=== PATIENT | female | born 1990 | race Caucasian/White ===

== ENCOUNTER 2017-02-05 18:26 | Emergency (ER) | payer BC, OTHER ==
[2017-02-05] MEDS ORDERED: Sodium Chloride 0.9% 1,000 ML IV ONE (18:55)
[2017-02-05 19:51] LABS: CHLORIDE,CL 106 mmol/L (98-110); SODIUM,NA 140 mmol/L (136-146)
--- NOTE | 2017-02-05 20:43 | EDM.PDOC ---
ED HPI GENERAL MEDICAL PROBLEM - General Chief Complaint: Abdominal Pain Stated Complaint: PT HAS STOMACH PAINS Time Seen by Provider: 02/05/17 18:55 Source of Information: Reports: Patient History Limitations: Reports: No Limitations - History of Present Illness INITIAL COMMENTS - FREE TEXT/NARRATIVE: History of present illness: 26 year-old female comes in complaining of abdominal pain. Patient indicates that the pain started this morning, denies any nausea or vomiting. Patient indicates that his gotten worse throughout the day and has a cramping type quality and she became concerned and wanted it evaluated. Review of systems: As per history of present illness and below otherwise all systems reviewed and negative. Past medical history: As per history of present illness and as reviewed below otherwise noncontributory. Surgical history: As per history of present illness and as reviewed below otherwise noncontributory. Social history: No reported history of drug or alcohol abuse. Family history: As per history of present illness and as reviewed below otherwise noncontributory. Physical exam: HEENT: Atraumatic, normocephalic, pupils reactive, negative for conjunctival pallor or scleral icterus, mucous membranes moist, throat clear, neck supple, nontender, trachea midline. Lungs: Clear to auscultation, breath sounds equal bilaterally, chest nontender. Heart: S1S2, regular, negative for clicks, rubs, or JVD. Abdomen: Soft, diffuse nonspecific tenderness, of a radiating quality. On palpation pain seems to wax and wane. Negative for masses or hepatosplenomegaly. Negative for costovertebral tenderness. Pelvis: Stable nontender. Genitourinary: Deferred. Rectal: Deferred. Extremities: Atraumatic, negative for cords or calf pain. Neurovascular unremarkable. Neuro: Awake, alert, oriented. Cranial nerves II through XII unremarkable. Cerebellum unremarkable. Motor and sensory unremarkable throughout. Exam nonfocal. Patient accused that she has a sporadic bowel pattern going only every 2-3 days and that she does not have diarrhea but it is not hard either. Patient is unable to quantify what a normal bowel movement is for her area Diagnostics: [CBC, CMP, blood plate of abdomen] Therapeutics: [] Impression: [Colonic constipation, increased bowel gas pattern] Plan: [Liquid diet 24-48 hours increase ambulation slowly increase diet as tolerated] Definitive disposition and diagnosis as appropriate pending reevaluation and review of above. Upper Abdominal Pain Pain Score (Numeric/FACES): 6 - Related Data Allergies Allergy/AdvReac Type Severity Reaction Status Date / Time No Known Allergies Allergy Verified 02/05/17 18:42 Home Meds: Home Meds . [No Known Home Meds] 02/05/17 [History] Past Medical History Gastrointestinal History: Reports: None - Past Surgical History GI Surgical History: Reports: Appendectomy Social & Family History - Family History Family Medical History: Noncontributory - Tobacco Use Smoking Status *Q: Never Smoker - Caffeine Use Caffeine Use: Reports: None - Recreational Drug Use Recreational Drug Use: No ED ROS GENERAL - Review of Systems Review Of Systems: See Below (See history of present illness) ED EXAM, GI/ABD - Physical Exam Exam: See Below (See history of present illness) Course - Vital Signs Last Recorded V/S: Last Vital Signs Temp 36.5 C 02/05/17 18:42 Pulse 80 02/05/17 18:42 Resp 16 02/05/17 18:42 BP 125/60 02/05/17 18:42 Pulse Ox 99 02/05/17 18:42 - Orders/Labs/Meds Orders: Active Orders 24 hr Category Date Time Status Flat upright w/ PA Chest [Abdomen 2V AP Upright Decub] Exams 02/05/17 19:38 Taken [CR] Stat Labs: Laboratory Tests 02/05/17 02/05/17 02/05/17 Range/Units 18:40 18:40 19:06 WBC 8.23 (4.0-11.0) K/uL RBC 4.25 L (4.30-5.90) M/uL Hgb 12.7 (12.0-16.0) g/dL Hct 38.5 (36.0-46.0) % MCV 90.6 (80.0-98.0) fL MCH 29.9 (27.0-32.0) pg MCHC 33.0 (31.0-37.0) g/dL RDW Std Deviation 42.7 (28.0-62.0) fl RDW Coeff of Mio 13 (11.0-15.0) % Plt Count 154 (150-400) K/uL MPV 12.00 (7.40-12.00) fL Neut % (Auto) 65.0 (48.0-80.0) % Lymph % (Auto) 28.2 (16.0-40.0) % [place] % (Auto) 5.5 (0.0-15.0) % Eos % (Auto) 0.9 (0.0-7.0) % Baso % (Auto) 0.4 (0.0-1.5) % Neut # (Auto) 5.4 (1.4-5.7) K/uL Lymph # (Auto) 2.3 (0.6-2.4) K/uL [place] # (Auto) 0.5 (0.0-0.8) K/uL Eos # (Auto) 0.1 (0.0-0.7) K/uL Baso # (Auto) 0.0 (0.0-0.1) K/uL Nucleated RBC % 0.0 /100WBC Nucleated RBCs # 0 K/uL Sodium (136-146) mmol/L Potassium (3.5-5.1) mmol/L Chloride (98-110) mmol/L Carbon Dioxide (21-31) mmol/L BUN (6.0-23.0) mg/dL Creatinine (0.6-1.5) mg/dL Est Cr Clr Drug Dosing mL/min Estimated GFR (MDRD) ml/min Glucose (60-110) mg/dL Calcium (8.8-10.8) mg/dL Total Bilirubin (0.1-1.5) mg/dL AST (5-40) IU/L ALT (8-54) IU/L Alkaline Phosphatase (40-150) Total Protein (6.0-8.0) g/dL Albumin (3.5-5.0) g/dL Globulin (2.0-3.5) g/dL Albumin/Globulin Ratio (1.3-2.8) Urine Color YELLOW Urine Appearance CLEAR Urine pH 6.0 (5.0-8.0) Ur Specific Happy 1.020 (1.001-1.035) Urine Protein NEGATIVE (NEGATIVE) mg/dL Urine Glucose (UA) NEGATIVE (NEGATIVE) mg/dL Urine Ketones 15 H (NEGATIVE) mg/dL Urine Occult Blood TRACE-INTACT (NEGATIVE) Urine Nitrite NEGATIVE (NEGATIVE) Urine Bilirubin NEGATIVE (NEGATIVE) Urine Urobilinogen 1.0 (<2.0) EU/dL Ur Leukocyte Esterase NEGATIVE (NEGATIVE) Urine RBC 0-2 (0-2/HPF) Urine WBC 0-4 (0-5/HPF) Ur Epithelial Cells MODERATE (NONE-FEW) Urine Bacteria FEW (NEGATIVE) Urine HCG, Qual NEGATIVE (NEGATIVE) 02/05/17 Range/Units 19:06 WBC (4.0-11.0) K/uL RBC (4.30-5.90) M/uL Hgb (12.0-16.0) g/dL Hct (36.0-46.0) % MCV (80.0-98.0) fL MCH (27.0-32.0) pg MCHC (31.0-37.0) g/dL RDW Std Deviation (28.0-62.0) fl RDW Coeff of Mio (11.0-15.0) % Plt Count (150-400) K/uL MPV (7.40-12.00) fL Neut % (Auto) (48.0-80.0) % Lymph % (Auto) (16.0-40.0) % [place] % (Auto) (0.0-15.0) % Eos % (Auto) (0.0-7.0) % Baso % (Auto) (0.0-1.5) % Neut # (Auto) (1.4-5.7) K/uL Lymph # (Auto) (0.6-2.4) K/uL [place] # (Auto) (0.0-0.8) K/uL Eos # (Auto) (0.0-0.7) K/uL Baso # (Auto) (0.0-0.1) K/uL Nucleated RBC % /100WBC Nucleated RBCs # K/uL Sodium 140 (136-146) mmol/L Potassium 3.6 (3.5-5.1) mmol/L Chloride 106 (98-110) mmol/L Carbon Dioxide 26 (21-31) mmol/L BUN 10 (6.0-23.0) mg/dL Creatinine 0.7 (0.6-1.5) mg/dL Est Cr Clr Drug Dosing 125.01 mL/min Estimated GFR (MDRD) > 60.0 ml/min Glucose 89 (60-110) mg/dL Calcium 9.2 (8.8-10.8) mg/dL Total Bilirubin 0.7 (0.1-1.5) mg/dL AST 17 (5-40) IU/L ALT 23 (8-54) IU/L Alkaline Phosphatase 60 (40-150) Total Protein 6.7 (6.0-8.0) g/dL Albumin 4.1 (3.5-5.0) g/dL Globulin 2.6 (2.0-3.5) g/dL Albumin/Globulin Ratio 1.6 (1.3-2.8) Urine Color Urine Appearance Urine pH (5.0-8.0) Ur Specific Happy (1.001-1.035) Urine Protein (NEGATIVE) mg/dL Urine Glucose (UA) (NEGATIVE) mg/dL Urine Ketones (NEGATIVE) mg/dL Urine Occult Blood (NEGATIVE) Urine Nitrite (NEGATIVE) Urine Bilirubin (NEGATIVE) Urine Urobilinogen (<2.0) EU/dL Ur Leukocyte Esterase (NEGATIVE) Urine RBC (0-2/HPF) Urine WBC (0-5/HPF) Ur Epithelial Cells (NONE-FEW) Urine Bacteria (NEGATIVE) Urine HCG, Qual (NEGATIVE) Meds: Medications Discontinued Medications Generic Name Dose Route Start Last Admin Trade Name Freq PRN Reason Stop Dose Admin Sodium Chloride 1,000 mls @ 999 mls/hr 02/05/17 18:55 02/05/17 19:10 Normal Saline IV 02/05/17 19:55 999 mls/hr STAT ONE Administration Departure - Departure Time of Disposition: 20:42 Disposition: Home, Self-Care 01 Condition: Good Clinical Impression: Abdominal pain - Discharge Information Instructions: Abdominal Pain, Adult, [id number], Constipation, Adult, Easy-to -Read Forms: ED Department Discharge Additional Instructions: The following information is given to patients seen in the emergency department who are being discharged to home. This information is to outline your options for follow-up care. We provide all patients seen in our emergency department with a follow-up referral. The need for follow-up, as well as the timing and circumstances, are variable depending upon the specifics of your emergency department visit. If you don't have a primary care physician on staff, we will provide you with a referral. We always advise you to contact your personal physician following an emergency department visit to inform them of the circumstance of the visit and for follow-up with them and/or the need for any referrals to a consulting specialist. The emergency department will also refer you to a specialist when appropriate. This referral assures that you have the opportunity for follow-up care with a specialist. All of these measure are taken in an effort to provide you with optimal care, which includes your follow-up. Under all circumstances we always encourage you to contact your private physician who remains a resource for coordinating your care. When calling for follow-up care, please make the office aware that this follow-up is from your recent emergency room visit. If for any reason you are refused follow-up, please contact the [facility] Emergency Department at and asked to speak to the emergency department charge nurse. Increase your fluid intake as discussed Increase your fiber in intake as discussed after 48 hours Increase her ambulation as discussed Follow-up with PCP 1-2 days return to ED as needed as discussed - My Orders Last 24 Hours: My Active Orders 02/05/17 19:38 Flat upright w/ PA Chest [Abdomen 2V AP Upright Decub] [CR] Stat - Assessment/Plan Last 24 Hours: My Active Orders 02/05/17 19:38 Flat upright w/ PA Chest [Abdomen 2V AP Upright Decub] [CR] Stat
[2017-02-05 20:55] VITALS: BP 104/61
--- NOTE | 2017-02-08 11:34 | CR ---
EXAM DATE: 02/05/17 PATIENT'S AGE: 26 Patient: MANSI ALEJANDRA Facility: [place], [place] Site . Site : 1990 Study: XRay Abdomen [id number]/7/2017 8:07:16 PM Ordering Physician: Doctor Esquivel Final Report: INDICATION: Abdominal pain. TECHNIQUE: Flat and upright views of the abdomen and pelvis. PA chest x-ray. FINDINGS: Clear lungs. Normal heart size. No evidence for congestive heart failure or pneumothoraces. No pleural effusions. No free air on the upright film. Nonspecific bowel gas pattern without obstruction or ileus. There is a centrally located mildly distended bowel loop projected over the lower abdomen. It is uncertain if this is related to small or large bowel. Scattered gas and stool throughout portions of the colon and rectum. Findings may reflect mild colonic constipation. IMPRESSION: 1. There is no acute cardiopulmonary process identified. No free air. 2. Probable colonic constipation. 3. Gas-filled mildly distended bowel loop within the central abdomen potentially a small bowel loop. A localized ileus is a consideration. Please correlate clinically. Dictated by Kyaw Avina MD @ 02/05/2017 8:25:46 PM Dictated by: Kyaw Avina MD @ 02/05/2017 20:25:57 (Electronic Signature) Report Signed by Proxy. [facility]AMPUSRehana
== END 2017-02-05 20:54 | disposition home or self-care (01) ==
LOC: MW.ED 18:26
DX: K59.00 Constipation, unspecified (principal); Z90.49 Acquired absence of other specified parts of digestive tract
CPT/HCPCS: 74022; 80053; 81001; 81025; 85025; 96360; 99284; J7040; 99282

== ENCOUNTER 2019-08-09 06:39 | Day surgery (SDC) | payer OTHER ==
[~2019-08-09 06:39] MED LIST: Lactated Ringers 1,000 ML IV SCH
[2019-08-09] MEDS ORDERED: Propofol 200 MG/20 ML SDV ONE (07:06)
[2019-08-09] MEDS ORDERED: fentaNYL 250 MCG/5 ML SDV ONE (07:06)
[2019-08-09] MEDS ORDERED: Midazolam 1 MG/ML 2 ML SDV ONE (07:06)
[2019-08-09] MEDS ORDERED: Glycopyrrolate 0.2 MG/ML SDV ONE (07:10)
[2019-08-09] MEDS ORDERED: Ketorolac 30 MG/ML SDV ONE (07:10)
[2019-08-09] MEDS ORDERED: Ondansetron 4 MG/2 ML SDV ONE (07:10)
[2019-08-09] MEDS ORDERED: Lidocaine 2% 5 ML SDV ONE (07:10)
--- NOTE | 2019-08-09 07:24 | PCM.PREANE ---
Preanesthetic Assessment - Anesthesia/Transfusion/Family Hx Anesthesia History: Prior Anesthesia Without Reaction Family History of Anesthesia Reaction: No Transfusion History: No Prior Transfusion(s) - Review of Systems General: No Symptoms Pulmonary: No Symptoms Cardiovascular: No Symptoms Gastrointestinal: No Symptoms Neurological: No Symptoms Other: Reports: None - Physical Assessment NPO Status Date: 08/08/19 NPO Status Time: 22:50 Vital Signs: Last Vital Signs Temp Pulse 86 08/09/19 06:47 Resp 16 08/09/19 06:47 BP 119/73 08/09/19 06:47 Pulse Ox 99 08/09/19 06:47 Height: 5 ft 9 in Weight: 90.718 kg ASA Class: 1 Mental Status: Alert & Oriented x3 Airway Class: Mallampati = 2 Dentition: Reports: Normal Dentition ROM/Head Extension: Full Lungs: Clear to Auscultation, Normal Respiratory Effort Cardiovascular: Regular Rate, Regular Rhythm - Allergies Allergies/Adverse Reactions: Allergies Allergy/AdvReac Type Severity Reaction Status Date / Time No Known Allergies Allergy Verified 08/04/19 09:05 - Blood Blood Available: No - Anesthesia Plan Pre-Op Medication Ordered: None - Acknowledgements Anesthesia Type Planned: General Anesthesia Pt an Appropriate Candidate for the Planned Anesthesia: Yes Alternatives and Risks of Anesthesia Discussed w Pt/Guardian: Yes Pt/Guardian Understands and Agrees with Anesthesia Plan: Yes PreAnesthesia Questionnaire HEENT History: Reports: Other (See Below) Other HEENT History: wears glasses/contacts Cardiovascular History: Reports: None Respiratory History: Reports: None Gastrointestinal History: Reports: Other (See Below) Other Gastrointestinal History: occasional heartburn relieved with tums Genitourinary History: Reports: None Musculoskeletal History: Reports: None Neurological History: Reports: None Psychiatric History: Reports: None Endocrine/Metabolic History: Reports: Obesity/BMI 30+ Hematologic History: Reports: None Immunologic History: Reports: None Oncologic (Cancer) History: Reports: None Dermatologic History: Reports: None - Past Surgical History Head Surgeries/Procedures: Reports: None HEENT Surgical History: Reports: Oral Surgery, Tonsillectomy Cardiovascular Surgical History: Reports: None Respiratory Surgical History: Reports: None GI Surgical History: Reports: Appendectomy Female Surgical History: Reports: None Endocrine Surgical History: Reports: None Neurological Surgical History: Reports: None Musculoskeletal Surgical History: Reports: None Oncologic Surgical History: Reports: None Dermatological Surgical History: Reports: None - SUBSTANCE USE Smoking Status *Q: Never Smoker - HOME MEDS Home Medications: Home Meds Calcium Carbonate [Tums] 1 tab.chew CHEW ASDIRECTED PRN 08/04/19 [History] - CURRENT (IN HOUSE) MEDS Current Meds: Current Medications Cefazolin Sodium/Dextrose 2 gm (/ Premix) 50 mls @ 100 mls/hr IV ONCALL OCTAVIO Lactated Ringer's (Ringers, Lactated) 1,000 mls @ 100 mls/hr IV ASDIRECTED [facility] Last Admin: 08/09/19 07:00 Dose: 100 mls/hr Discontinued Medications Fentanyl (Sublimaze) Confirm Administered Dose 250 mcg .ROUTE .STK-MED ONE Stop: 08/09/19 07:07 Glycopyrrolate (Robinul) Confirm Administered Dose 0.2 mg .ROUTE .STK-MED ONE Stop: 08/09/19 07:11 Ketorolac Tromethamine (Toradol) Confirm Administered Dose 30 mg .ROUTE .STK- MED ONE Stop: 08/09/19 07:11 Lidocaine (Xylocaine-Mpf 2%) Confirm Administered Dose 5 ml .ROUTE .STK-MED ONE Stop: 08/09/19 07:11 Midazolam HCl (Versed 1 Mg/Ml) Confirm Administered Dose 2 mg .ROUTE .STK-MED ONE Stop: 08/09/19 07:07 Ondansetron HCl (Zofran) Confirm Administered Dose 4 mg .ROUTE .STK-MED ONE Stop: 08/09/19 07:11 Propofol (Diprivan 20 Ml) Confirm Administered Dose 200 mg .ROUTE .STK-MED ONE Stop: 08/09/19 07:07
[2019-08-09] MEDS ORDERED: ceFAZolin 1 GM Vial ONE (07:27)
[2019-08-09] MEDS ORDERED: Sodium Chloride 0.9% 20 ML ONE (07:27)
[2019-08-09] MEDS ORDERED: ceFAZolin 2 GM in Premix Bag 1 BAG IV SCH (08:00)
[2019-08-09] MEDS ORDERED: Phenylephrine/Normal Saline 100 MCG/ML 10 ML Syringe ONE (08:14)
[2019-08-09] MEDS ORDERED: fentaNYL 100 MCG/2 ML SDV IVPUSH PRN (09:09)
[2019-08-09] MEDS ORDERED: fentaNYL 100 MCG/2 ML SDV ONE ×2 (09:30→10:22)
[2019-08-09] MEDS ORDERED: Haloperidol Lactate 5 MG/ML SDV IM ONE (11:43)
--- NOTE | 2019-08-09 12:10 | PCM.POSTAN ---
POST ANESTHESIA ASSESSMENT - MENTAL STATUS Mental Status: Alert, Oriented - VITAL SIGNS Vital Signs: Last Vital Signs Temp 97.2 F 08/09/19 11:19 Pulse 91 08/09/19 11:49 Resp 14 08/09/19 11:49 BP 131/73 08/09/19 11:49 Pulse Ox 94 L 08/09/19 11:49 - RESPIRATORY Respiratory Status: Respiratory Rate WNL, Airway Patent, O2 Saturation Stable - CARDIOVASCULAR CV Status: Pulse Rate WNL, Blood Pressure Stable - GASTROINTESTINAL GI Status: No Symptoms - POST OP HYDRATION Hydration Status: Adequate & Stable
--- NOTE | 2019-08-09 14:09 | PCM48HPAN ---
Post Anesthesia Note - EVALUATION WITHIN 48HRS OF ANESTHETIC Vital Signs in Normal Range: Yes Patient Participated in Evaluation: Yes Respiratory Function Stable: Yes Airway Patent: Yes Cardiovascular Function Stable: Yes Hydration Status Stable: Yes Pain Control Satisfactory: Yes Nausea and Vomiting Control Satisfactory: Yes Mental Status Recovered: Yes Vital Signs: Last Vital Signs Temp 97.2 F 08/09/19 11:19 Pulse 62 08/09/19 13:06 Resp 14 08/09/19 13:06 BP 107/43 L 08/09/19 13:06 Pulse Ox 99 08/09/19 13:06
--- NOTE | 2019-08-09 14:15 | PCM.OPNOTE ---
- General Post-Op/Procedure Note Date of Surgery/Procedure: 08/09/19 Operative Procedure(s): right acl reconstruction Pre Op Diagnosis: right acl tear Post-Op Diagnosis: Same Anesthesia Technique: General ET Tube Primary Surgeon: David Narayanan Landscape Specialist: Marline Costa EBL in mLs: 25 Complications: None Condition: Good Free Text/Narrative:: Intake & Output 08/08/19 08/09/19 08/09/19 22:59 06:59 14:59 Intake Total 1850 Balance 1850
[2019-08-09 14:24] VITALS: BP 115/67; PULSE 87
--- NOTE | 2019-08-09 15:33 | OR ---
SURGEON: David Narayanan DATE OF PROCEDURE: 08/09/2019 PREOPERATIVE DIAGNOSIS: Right anterior cruciate ligament tear. POSTOPERATIVE DIAGNOSIS: Right anterior cruciate ligament tear. PROCEDURE: Right anterior cruciate ligament reconstruction with allograft. PRIMARY SURGEON: David Narayanan DO. BLOW MOLDER: WES Murray. ROLE OF BLOW MOLDER: Nurse practitioner, WES Murray, played an essential role in assisting in this case, helping to position the patient, retract structures as needed, as well as suturing and cutting sutures as indicated. Her presence improved patient's safety and decreased operative time. ANESTHESIA: General endotracheal intubation. FLUID: Lactated Ringer's solution. ESTIMATED BLOOD LOSS: 25 mL. COMPLICATIONS: None. SPECIMEN: None. DISCHARGE DISPOSITION: Stable to PACU. INSTRUMENTATION: Nora ProCinch. HISTORY AND INDICATIONS FOR THE PROCEDURE: The patient was seen preoperatively in the clinic. She had suffered an injury a few months prior. Preoperative imaging confirmed the above-mentioned diagnosis. Risks and benefits of the procedure were explained to the patient and informed consent was obtained. DETAILS OF PROCEDURE: The patient was seen preoperatively by myself and the Anesthesia staff in the preoperative holding area where the operative site was marked. She was brought to the operative suite by Anesthesia staff where general anesthesia was administered. The left lower extremity was placed in stirrup. The right lower extremity had a well-padded tourniquet placed and was placed into a knee jaeger. The right lower extremity was then prepped and draped in a sterile manner. Time- out was called to identify the correct patient, the correct procedure, the correct site and that antibiotics had been given within appropriate period of time. The right lower extremity was exsanguinated. Tourniquet was raised to 250 mm for 84 minutes and taken down during closing. Lateral portal was first made. The trocar entered the joint and then was placed in full extension going to the suprapatellar pouch. The joint was inspected. The patellofemoral joint did not have any chondromalacia, neither did the medial or lateral compartments. No medial or lateral meniscus tears were visualized. The anterior cruciate ligament was completely torn. The area of the stump was debrided with shaver and cautery. The notch was debrided with shaver and cautery. An osteotome was then used to perform a notchplasty. This bone was removed using pituitaries. The graft was then whipstitched and measured and found to be a 10 mm. The anterior medial portal was then used to place a 7 mm, 2 mm back wall guide. This was held in position and then the pin was then drilled through all the way out to the skin. The skin was nicked using an 11 blade and the pin was then taken outside. We then used a measuring guide which measured 37. We then drilled a 10 mm x 25 mm femoral tunnel and then continued the tunnel out with a 4.5 mm reamer. We then put a passing suture through that pin and pulled it up the femur and then snapped the suture from the portal outside the of the pin area. We then focused on tibial placement. A portal was made 3 fingerbreadths proximal to the joint line and just lateral to the medial edge of the tibia. We then used our 55 mm guide and placed it at the middle of the stump and then drilled this through with a guide pin. I then over-reamed with a 10 mm reamer. At that point, we placed a plug in the tibia to prevent excessive water loss. We then brought the loop of the passing suture through into the joint and then went through the tibial tunnel with pituitaries and grabbed that suture and brought it out the tibial tunnel. We then had our ProCinch looped around the graft. We then pulled out the passing suture through after marking 37 mm on the suture proximal to the button and then 25 mm on the graft. This was brought through. We did have a little bit of difficulty and passed a guidewire through to remove some soft tissue and was able to pass the graft through to the button. We then flipped the button using the striped sutures and then tested this to make sure that it was stable. We then used our cinch sutures to bring the graft up in a good position and confirmed the depth. Once this had been accomplished, we then cycled the knee and then placed the 11 mm interference screw in the tibia. This provided good fixation with a positive stop with the anterior drawer test. We then injected 0.25% Marcaine with epinephrine and then closed with 3-0 nylon sutures. We then applied sterile dressing including Betadine- soaked Adaptic and then allowed the patient to awaken from general anesthesia and taken to the PACU in stable condition. [id number] / MODL /[id number]
== END 2019-08-09 14:18 | disposition home or self-care (01) ==
LOC: MW.SDS 06:39
PROVIDERS: ATTEND Orthopaedic Surgery
DX: S83.511A Sprain of anterior cruciate ligament of right knee, initial encounter (principal); E66.9 Obesity, unspecified; Z68.29 Body mass index [BMI] 29.0-29.9, adult
CPT/HCPCS: 29888; 81025; J0690; J1630; J1885; J2001; J2250; J2370; J2405; J2704; J3010; J3490; J7120; 01400; C1713; C1762; C1776